=== PATIENT | female | born 1945 | race Caucasian/White ===

== ENCOUNTER 2018-07-13 09:31 | Inpatient (IN) ==
[2018-07-13 10:12] LABS: BASO# 0.01 X1000 (0.0-0.2); BASO% 0.2 % (0.0-0.8); EOS# 0.02 X1000 (0.0-0.7); EOS% 0.4 % (0.0-10.0); HEMATOCRIT 48.3 % (37.0-47.0); HEMOGLOBIN 15.2 g/dL (12.0-16.0); IMM GRAN# 0.01 X1000 (0.0-0.04); IMM GRAN% 0.2 % (0.0-0.5); LYMPH# 0.88 X1000 (1.2-3.4); LYMPH% 16.7 % (20.5-51.1); MCH 31.5 PG (27-31); MCHC 31.5 g/dL (33-37); MONO% 9.5 % (1.7-9.3); MPV 10.6 FL (7.4-10.4); NEUT# 3.86 X1000 (1.4-6.5); PLT 133 X1000 (130-400); RBC 4.83 XMIL (4.2-5.4); RDW 13.4 % (11.5-14.5); WBC 5.28 X1000 (4.8-10.8)
[2018-07-13] MEDS ORDERED: MAGNESIUM SULFATE 1 GM/D5W 1 GM/100 ML IVPB IV ONE (10:20)
[2018-07-13] MEDS ORDERED: SOLU-MEDROL IV ONE (10:20)
[2018-07-13] MEDS ORDERED: LASIX IV ONE ×2 (10:20→12:00)
--- NOTE | 2018-07-13 10:29 | PROVIDER DOCUMENTATION ---
This chart was entered by Michael Leija Scribe, acting as scribe for Kassandra Neff MD. HPI-Respiratory General - General Chief Complaint: Edema Stated Complaint: SWOLLEN FEET Time Seen by Provider: 07/13/18 10:12 Source: patient - History of Present Illness-Resp Nature of Presenting Problem: 73 yof hx of dm and htn presents with cc of Increasing BLE edema x past couple of weeks. Family reports increased sob which pt denies. Pt reports she is a smoker. No hx of afib according to EKG on arrival pt is in afib. Pt reports she doesn't need her dm medications. Denies f,cp,back pain,abd pain. No hx of dvt or pe. Quality of Pain: reports: none Severity in ED: reports: mild Review of Systems - Adult - REVIEW OF SYSTEMS - ADULT Constitutional: denies: chills, fever, fatique Eyes: reports: no symptoms reported Ears, Nose, Mouth & Throat: reports: no symptoms reported Cardiovascular: reports: edema. denies: chest pain, irregular heart rate, orthopnea, syncope Respiratory: reports: shortness of breath. denies: cough, pleurisy, wheezing Gastrointestinal: denies: abdominal pain, nausea, vomiting Genitourinary: denies: dysuria, flank pain, urgency Musculoskeletal: denies: bone pain, joint pain, joint swelling, neck pain Integumentary: reports: no symptoms reported Neurological: reports: no symptoms reported Psychiatric: reports: no symptoms reported Endocrine: reports: no symptoms reported Hematologic/Lymphatic: reports: no symptoms reported Allergic/Immunologic: reports: no symptoms reported All Other Systems: Reviewed and Negative Past History - Adult - PAST MEDICAL HISTORY-ADULT Review of Records: reports: Nursing Assessment Review, Medications Reviewed Major Childhood Illnesses: reports: denies history Cardiovascular: reports: HTN Respiratory: reports: denies history Gastrointestinal: reports: denies history Obstetrical/Gynecological: reports: denies history Genitourinary: reports: denies history Musculoskeletal: reports: denies history Neurological: reports: denies history Endocrine/Immune: reports: Diabetes Other Conditions: reports: denies history - IMMUNIZATION STATUS Childhood Immunizations: See Nurse Assessment Flu Vaccine: See Nurse Assessment - FAMILY HISTORY Family History: reviewed, not pertinent - SOCIAL HISTORY Smoking: cigarettes, less than 1 pack/day Provider spent 3-5 mins advising pt. on dangers of tobacco.: Discussed manners to quit use, and f/u contacts for add'l counseling. Substance Use: none/never Physical Exam-General - PHYSICAL EXAM-ADULT Initial Vital Signs Reviewed: Yes - CONSTITUTIONAL General Appearance: mild distress - EYES Eyes: pink conjunctivae - HEAD, EARS, NOSE, MOUTH & THROAT HENMT: moist mucous membranes - NECK Neck: full range of motion - RESPIRATORY Respiratory: chest non-tender, no pleuratic chest pain, no respiratory distress , decreased breath sounds, wheezing (mild diffuse) - CARDIOVASCULAR Cardiovascular: normal peripheral pulses, irregularly irregular, other ( bilateral lower leg edema with 3 + pitting to knees, redness of skin) - GASTROINTESTINAL (ABDOMEN) Abdominal Exam: normal bowel sounds, non tender, soft, other (obese) - LYMPHATIC Lymphatic: no adenopathy - MUSCULOSKELETAL Back Exam: normal inspection, no CVA tenderness Extremity: normal range of motion, non-tender Peripheral Pulses: radial (R): 2+, radial (L): 2+ - SKIN Integumentary: warm/dry, other (redness, 3+ pitting edema bilateral LE with mild weeping RLE) - NEUROLOGIC Neurologic: grossly normal, no motor/sensory deficits - PSYCHIATRIC Psych/Mental Status: normal mood/affect, oriented x 3, other (slightly confused sometimes when trying to follow directions, says she doesn't smoke, but she does , daughter says she has noticed that her memory and following directions is declining over past few weeks) Progress - PLAN OF CARE/RESULTS Progress/Plan/Lab Results: Vital Signs - 8 hr 07/13/18 09:37 07/13/18 11:45 Temperature 97.9 F Pulse Rate 76 84 Respiratory Rate 18 18 Blood Pressure 105/64 101/70 O2 Sat by Pulse Oximetry 92 L 97 Laboratory Results - last 24 hr 07/13/18 07/13/18 07/13/18 10:04 10:04 10:04 WBC 5.28 RBC 4.83 Hgb 15.2 Hct 48.3 H MCV 100.0 H MCH 31.5 H MCHC 31.5 L RDW Std Deviation 13.4 Plt Count 133 MPV 10.6 H Immature Gran % (Auto) 0.2 Neut % (Auto) 73.0 Lymph % (Auto) 16.7 L [place] % (Auto) 9.5 H Eos % (Auto) 0.4 Baso % (Auto) 0.2 Immature Gran # (Auto) 0.01 Neut # (Auto) 3.86 Lymph # (Auto) 0.88 L [place] # (Auto) 0.50 Eos # (Auto) 0.02 Baso # (Auto) 0.01 Specimen Type VBG pH VBG pCO2 VBG pO2 VBG HCO3 VBG O2 Saturation VBG Base Excess VBG Lactate Sodium 139 Potassium 4.4 Chloride 98 Carbon Dioxide 32 Anion Gap 9 BUN 19 Creatinine 0.8 Estimated GFR/1.73 m2 > 60 BUN/Creatinine Ratio 24 Glucose 119 H Calculated Osmolality 281 Calcium 9.1 Total Bilirubin 0.80 AST 16 ALT 25 Alkaline Phosphatase 93 Creatine Kinase 59 Troponin T [id number] Pept 71145 H Total Protein 5.8 L Albumin 3.3 L Globulin 3.0 Albumin/Globulin Ratio 1.0 Urine Source Urine Color Urine Clarity Urine pH Ur Specific [place] Urine Protein Urine Ketones Urine Blood Urine Nitrite Urine Bilirubin Urine Urobilinogen Urine Microscopic RBC Urine WBC Urine Microscopic WBC Ur Epithelial Cells Urine Bacteria Urine Glucose 07/13/18 07/13/18 07/13/18 10:04 10:45 11:00 WBC RBC Hgb Hct MCV MCH MCHC RDW Std Deviation Plt Count MPV Immature Gran % (Auto) Neut % (Auto) Lymph % (Auto) [place] % (Auto) Eos % (Auto) Baso % (Auto) Immature Gran # (Auto) Neut # (Auto) Lymph # (Auto) [place] # (Auto) Eos # (Auto) Baso # (Auto) Specimen Type VENOUS VBG pH 7.36 VBG pCO2 74 H* VBG pO2 37 VBG HCO3 33.7 H VBG O2 Saturation 72.5 VBG Base Excess 12.4 H VBG Lactate 1.20 Sodium Potassium Chloride Carbon Dioxide Anion Gap BUN Creatinine Estimated GFR/1.73 m2 BUN/Creatinine Ratio Glucose Calculated Osmolality Calcium Total Bilirubin AST ALT Alkaline Phosphatase Creatine Kinase Troponin T 0.016 Kgf-N-Phtlnpssgnz Pept Total Protein Albumin Globulin Albumin/Globulin Ratio Urine Source CATH Urine Color YELLOW Urine Clarity HAZY A Urine pH 6.5 Ur Specific [place] 1.020 Urine Protein 3+(500 mg/dL) A Urine Ketones NEGATIVE Urine Blood NEGATIVE Urine Nitrite NEGATIVE Urine Bilirubin NEGATIVE Urine Urobilinogen 4 Urine Microscopic RBC Not Reportable Urine WBC TRACE A Urine Microscopic WBC <10 Ur Epithelial Cells >10 A Urine Bacteria 1+ Urine Glucose NEGATIVE Orders Category Date Time Status Cardiac Monitoring DIRECTED Care 07/13/18 09:51 Completed Martinez Cath Insertion ORDERED Care 07/13/18 10:19 Completed Oxygen Therapy- ED Nursing DIRECTED Care 07/13/18 09:51 Active Saline Loc NOW Care 07/13/18 09:51 Active CHEST-2 VIEWS [RAD] Stat Exams 07/13/18 09:51 Completed CBC WITH ELECTRONIC DIFF [HEME] Stat Lab 07/13/18 10:04 Completed CK PROFILE [SP CHEM] Stat Lab 07/13/18 10:04 Completed COMPREHENSIVE METABOLIC PANEL [CHEM] Stat Lab 07/13/18 10:04 Completed PRO B-NATRIURETIC PEPTIDE Stat Lab 07/13/18 10:04 Completed TROPONIN T Stat Lab 07/13/18 10:04 Completed URINE CULTURE [RM] Routine Lab 07/13/18 11:57 Ordered VBG [VENOUS BLOOD GAS] [RESP] Routine Lab 07/13/18 10:45 Completed ua [URINALYSIS PL W/POSS RFLX CULT] [URINALYSIS] Stat Lab 07/13/18 11:00 Completed Furosemide [Lasix] Med 07/13/18 10:20 Discontinued 20 mg IV NOW ONE Furosemide [Lasix] Med 07/13/18 12:00 Discontinued 40 mg IV NOW ONE Magnesium Sulfate 1 gm/D5w Med 07/13/18 10:20 Discontinued 1 gm in 100 ml IV NOW Methylprednisolone Sod Succ [Solu-Medrol] Med 07/13/18 10:20 Discontinued 80 mg IV NOW ONE CP/SOB/Palp >45 yrs of Age Stat Oth 07/13/18 09:51 Ordered EKG [EKG] Stat Ther 07/13/18 09:51 Ordered d/w daughter will admit pt when work up complete, apparently new onset afib, rate wnl, O2 sats 88-91 RA, difftl not limited to CHF afib CVA fluid overload NH electrolyte d/o d/w pt and family results, rec admit, suspect COPD as part of the problem though no official diagnosis per family d/w Dr Swartz HPI exam treatment EKG chest xray PMH as given, need for admit, agreed to admit Result Diagrams: 07/13/18 10:04 07/13/18 10:04 - EKG 1 Time of EKG reading by physician:: 09:55 EKG Read and Signed by:: Kassandra Neff EKG Interpretation (*Must complete 3 of following elements*): Abnormal ( nonspecific intraventricular block, possible lateral infarct age undetermined) Rate: 101 Rhythm: afib with rvr [place]: normal Departure - Departure Date of Disposition Decision: 07/13/18 Time of Disposition Decision: 12:16 DIAGNOSIS: New onset a-fib, Bilateral edema of lower extremity, Dyspnea, Confusion Disposition: ADMITTED INPATIENT 09 Certified Medical Emergency: Emergent Condition: Good Additional Freetext Instructions: Shalini [id number] Referrals and Follow-Ups: Bharat Galdamez [Primary Care Provider] - - Critical Care Note This patient required my direct & personal management of CC.: Yes Total Time (mins): 30 Critical Care Statement: This patient required my direct personal management to treat or rule out processes, the absence of which, could potentiallly result in sudden, clinically significant life or limb threatening deterioration. Attestation - Physician/ MILTON Attestation Patient care was provided by Advanced Practice Provider:: No The physician spent face to face time with patient:: Yes Advanced Practice Provider documentation review:: Supervising physician onsite and consulted in the evaluation and care of this patient. The physician did have a face to face encounter with the patient. This chart was documented by the indicated scribe, (Michael Leija Scribe) and accurately reflects the services I performed and decisions made by me, Kassandra Neff MD, as attested by the provider's signature.
[2018-07-13 10:31] LABS: AGAP 9; ALBUMIN 3.3 g/dL (3.5-5.0); ALKALINE PHOSPHATASE 93 U/L (32-104); BUN 19 mg/dL (8-22); CALCIUM 9.1 mg/dL (8.8-10.2); CHLORIDE 98 mmol/L (98-107); CK PROFILE 59 U/L (24-173); COSMO 281; CREATININE 0.8 mg/dL (0.5-0.9); ESTIMATED GFR > 60; GLUCOSE 119 mg/dL (70-104); GOT 16 U/L (10-30); GPT 25 U/L (10-36); POTASSIUM 4.4 mmol/L (3.5-5.1); SODIUM 139 mmol/L (136-145); TCO2 32 mmol/L (25-35); TOTAL PROTEIN 5.8 g/dL (6.3-8.3)
--- NOTE | 2018-07-13 10:32 | Diag Imaging Result Doc PS360 ---
EXAM: CHEST-2 VIEWS HISTORY: sob TECHNIQUE: Chest two views COMPARISON: None. FINDINGS: Poor inspiratory effort. The heart is enlarged. There are tiny pleural effusions. There is central vascular prominence. Atelectasis is present in the left lung base. IMPRESSION: Cardiomegaly with central vascular prominence and tiny pleural effusions. Electronically signed by Demarco Mitchell 07/13/2018 10:29 AM
[2018-07-13 10:55] LABS: BE 12.4 mmoll (-2.0-2.0); BLOOD TYPE VENOUS; HCO3-(ACT) 33.7 mmoll (22-27); PO2(98.6) 37 mmHg (30-55); SAMPLE BLOOD; pH(98.6) 7.36 (7.32-7.43)
[2018-07-13 10:58] LABS: PCO2(98.6) 74 mmHg (40-60); SAO2 72.5 % (40.0-85.0)
[2018-07-13 11:56] LABS: BILIRUBIN URINE NEGATIVE (NEGATIVE); BLOOD URINE NEGATIVE (NEGATIVE); COLOR YELLOW; GLUCOSE URINE NEGATIVE (NEGATIVE); KETONE URINE NEGATIVE (NEGATIVE); LEUKOCYTES URINE TRACE (NEGATIVE); NITRITE URINE NEGATIVE (NEGATIVE); PH URINE 6.5; URINE EPITHELIAL CELLS >10 /HPF (<10); URINE WBC <10 /HPF (<10); UROBILINOGEN URINE 4 mg/dL
[2018-07-13 11:57] LABS: CLARITY HAZY (CLEAR); URINE BACTERIA 1+ /HFP; URINE SOURCE CATH
[2018-07-13] MEDS ORDERED: ZOFRAN IV PRN (13:30)
--- NOTE | 2018-07-13 13:34 | EKG Report ---
Test Performed on : 07/13/2018 09:55:57 AM Test Reason : sob Blood Pressure : / mmHG Vent. Rate : 089 BPM Atrial Rate : 100 BPM P-R Int : 000 ms QRS Dur : 150 ms QT Int : 392 ms P-R-T Axes : 000 004 242 degrees QTc Int : 476 ms Atrial fibrillation. with premature ventricular or aberrantly conducted complexes. Nonspecific intraventricular block Abnormal ECG When compared with ECG of 13-JUL-2018 09:55, (Unconfirmed) Nonspecific T wave abnormality, improved in Inferior leads Unconfirmed Result
[2018-07-13] MEDS ORDERED: LEVAQUIN 750 MG/D5W 750 MG/150 ML IVPB IV SCH (15:45)
[2018-07-13] MEDS: LOVENOX SUBQ SCH (15:56)
[2018-07-13] MEDS: TYLENOL PO PRN (16:10)
--- NOTE | 2018-07-13 16:56 | HISTORY AND PHYSICAL ---
CHIEF COMPLAINT: Bilateral lower extremity edema, shortness of breath. HISTORY OF PRESENT ILLNESS: This is a 73-year-old morbidly obese female who presents to the emergency room complaining of bilateral lower extremity edema as well as shortness of breath. The patient varies from question to question on how long symptoms have been present. Her and daughter state that she has chronic lower extremity edema, although over the last 3 to 4 weeks it is increased. She has complained off and on of shortness of breath, over the last week to 2 weeks she has had episodes of chills and generalized body aches. She has also described over the last week of waking symptoms of episodes of PND that occur 2 to 3 hours after going to bed. She states she has to get up and sit on the side of the bed to get relief. She does use home O2 and states that she has been using as directed. PAST MEDICAL HISTORY: Hypertension, diabetes mellitus on no medications at present, chronic lower extremity edema. PAST SURGICAL HISTORY: Arthroscopy, cataract removal, hysterectomy, total knee replacement, tonsillectomy and back surgery. SOCIAL HISTORY: She denies alcohol or illicit drug use. She does smoke about half a pack a day. ALLERGIES: Mcnulty pepper which "makes her deathly ill." She has no medicine allergies. HOME MEDICATIONS: A list will be obtained by the nursing staff. Once reviewed will restart as appropriate. REVIEW OF SYSTEMS: Discussed with patient with pertinent positives stated in the HPI. She denied any syncope or dizziness, any chest pain, palpitations, a productive cough, orthopnea, any nausea vomiting, diarrhea, constipation, black or bloody vomitus or stools, any hematuria, dysuria, frequency or urgency. PHYSICAL EXAMINATION: GENERAL: This is a 73-year-old morbidly obese female who is lying in the bed in no distress. VITAL SIGNS: Blood pressure is 119/86 with a heart rate of 84, respirations are 20, temperature is 97.1 degrees oral with O2 saturations 96 to 98% on 2 L nasal cannula. HEENT: Pupils are equal, round, react to light. EOMs are intact sclerae anicteric. Head is normocephalic, atraumatic. Mucous membranes are moist. NECK: Supple with trachea midline. CARDIOVASCULAR: Irregularly irregular rate and rhythm. S1 and S2 appreciated. No murmurs. She does have bilateral lower extremity edema that is noted to just above the knees down. She does have redness noted about midshin down to her toes on her right lower extremity. She does have 2 areas that are scabbed. She is also noted to have redness on her left lower extremity. Peripheral pulses are palpable x4 extremities. She does have bilateral edema noted to both arms that is slightly pitting to her elbows. PULMONARY: Breath sounds are diminished throughout. She does have some faint expiratory wheezes noted in her right upper lobe. Chest rises and falls symmetric with respiration. Chest wall is nontender to palpation . GASTROINTESTINAL: Abdomen is large, soft, nondistended, nontender with bowel sounds in all 4 quadrants. GENITOURINARY: Martinez is patent to bedside bag with pauline urine draining. NEUROLOGIC: She is alert, oriented x3. SKIN: Warm and dry. LABS: WBC is 5.2 with a hemoglobin 15.2, hematocrit 48.3 and platelets of 133,000. Sodium is 139, potassium 4.4, BUN 19, creatinine 0.8 with a glucose of 119. Her proBNP is 20,823. Urinalysis is consistent with contamination with greater than 10 epithelial cells. She does have 3+ protein. Troponin was negative. Urine culture is pending. Chest x-ray revealed cardiomegaly with central vascular prominence and tiny pleural effusions as well as atelectasis in the left lung base. ASSESSMENT AND PLAN: 1. New onset atrial fibrillation. At present her rate is controlled in the 70s to 80s with blood pressures that are around 101 to 105 systolic. We will continue to monitor. 2. Bilateral lower extremity edema. The family states that she does have chronic lower extremity edema with right greater than left. She does have some signs of venous stasis on the right mendosa, although they state that it has greatly increased. We will get a bilateral lower extremity Doppler. Will give Lasix for diuresis. They did state that she has had some weeping. We will follow this and if any purulent drainage is noted we will send a culture. 3. Dyspnea, paroxysmal nocturnal dyspnea. Will give supplemental oxygen and continue diuresis. 4. Obstructive sleep apnea. The patient uses O2 at 2 L/minute at home at night. We will continue this and monitor. 5. Hypertension. Will identify any home medications and continue as appropriate. 6. Peripheral neuropathy. Will continue her gabapentin once dose is verified. 7. Elevated proBNP this is 20,823. She has no prior diagnosis of congestive heart failure. She did have a proBNP drawn by her primary care physician which was less than 400 in the last month or so. We will continue with diuresis and follow. We will obtain an echocardiogram. 8. Left lower lobe atelectasis. The patient states that she has had chills. The stated that the chills have been present for the last week or 10 days to the point that he has had to heat up blankets in the woodworker through the night to cover her so will go ahead get blood cultures and will start Levaquin. 9. I did call and speak with Dr. Bharat Galdamez's nurse who stated that the patient has had prior EKGs, they have had none in atrial fibrillation. The prior EKGs have been sinus rhythm. They have no history of atrial fibrillation. She did see Dr. Galdamez a week ago for the shortness of breath and increased swelling. She was given Lasix 20 mg in the morning for swelling and echocardiogram was ordered for 2 weeks. 10. For deep vein thrombosis prophylaxis will use Lovenox and for gastrointestinal prophylaxis Prilosec. Further treatments pending hospital course. Dictated by DUNCAN Palmer for Nikhil Swartz MD This chart was documented by, DUNCAN Palemr and accurately reflects the services performed, treatment plan and medical decisions as attested by the providers signature Nikhil Swartz MD. cc: DUNCAN Palmer MD
[2018-07-13] MEDS: LASIX IV SCH (21:57)
--- NOTE | 2018-07-14 01:36 | HISTORY AND PHYSICAL ---
ADDENDUM: The patient was seen and examined by myself. Full note dictated and discussed with nurse practitioner. The patient presented to the hospital and was subsequently diagnosed with congestive heart failure exacerbation. She has actually been using her oxygen at home via her 's nasal cannula. She does not have O2 at home. She has a history of bilateral lower extremity edema. We will admit her to the hospital. We will follow her atrial fibrillation, rule out MO and treat symptomatically. cc: Nikhil Swartz MD
[2018-07-14] MEDS: CALMOSEPTINE OINTMENT TOP PRN (05:58)
[2018-07-14] MEDS: PRILOSEC PO SCH (06:17)
[2018-07-14] MEDS ORDERED: LEVAQUIN 750 MG/D5W 750 MG/150 ML IVPB IV SCH (06:50)
[2018-07-14 07:33] LABS: HEMOGLOBIN 14.2 g/dL (12.0-16.0); MCH 31.6 PG (27-31); MCHC 30.9 g/dL (33-37); MCV 102.2 FL (81-99); RBC 4.5 XMIL (4.2-5.4); RDW 13.3 % (11.5-14.5); WBC 4.91 X1000 (4.8-10.8)
[2018-07-14 08:05] LABS: AGAP 6; ALBUMIN 3.1 g/dL (3.5-5.0); ALKALINE PHOSPHATASE 81 U/L (32-104); BUN 18 mg/dL (8-22); CALCIUM 8.9 mg/dL (8.8-10.2); CHLORIDE 95 mmol/L (98-107); COSMO 282; CREATININE 0.7 mg/dL (0.5-0.9); ESTIMATED GFR > 60; GLUCOSE 112 mg/dL (70-104); GOT 10 U/L (10-30); GPT 21 U/L (10-36); POTASSIUM 4.3 mmol/L (3.5-5.1); SODIUM 140 mmol/L (136-145); TCO2 38 mmol/L (25-35); TOTAL PROTEIN 5.4 g/dL (6.3-8.3)
[2018-07-14] MEDS: LASIX IV SCH ×2 (10:08→21:08)
[2018-07-14] MEDS: NEURONTIN PO SCH ×3 (10:08→16:56)
[2018-07-14] MEDS: TYLENOL PO PRN (10:31)
--- NOTE | 2018-07-14 10:52 | Extremity Venous Study ---
EXAM: Venous U/S Bilateral Legs HISTORY: ZULY redsharda TECHNIQUE: Bilateral lower extremity venous Doppler ultrasound COMPARISON: None. FINDINGS: Right: There is good flow and compressibility in the veins of the right lower extremity. No thrombus. Normal augmentation. Left: There is good flow and compressibility of the veins of the left lower extremity. No thrombus. Normal augmentation. IMPRESSION: No evidence of deep venous thrombosis within either lower extremity. Electronically signed by Demarco Mitchell 07/14/2018 10:48 AM
[2018-07-14] MEDS: LOVENOX SUBQ SCH (13:24)
[2018-07-14] MEDS: LEVAQUIN PO SCH (16:57)
[2018-07-14] MEDS: NORCO-5 PO PRN (21:07)
--- NOTE | 2018-07-14 23:35 | ECHO REPORT ---
ORDER DATE: 07/14/2018 MEASUREMENTS: Left ventricular end-diastolic diameter 5.8, systolic diameter 5.2, septal thickness 1.3, posterior wall thickness 1.3, aortic root 3.3, left atrium 5.4. SUMMARY: 1. Technically difficult study due to limited apical acoustic window quality. Intravenous echo contrast agent Definity was utilized to enhance endocardial definition. 2. Aortic valve is sclerotic but opens adequately on 2-dimensional images. Peak gradient across aortic valve is less than 10 mmHg. There is mild aortic regurgitation. Mild to moderate mitral annular calcification is demonstrated. There is mild mitral regurgitation. Tricuspid and pulmonic valves are without evidence of structural abnormality with moderate tricuspid regurgitation and mild pulmonic insufficiency. Estimated systolic PA pressure by Doppler is 35 to 40 mmHg suggesting mild pulmonary hypertension. Aortic root is normal in size. 3. Mild left ventricular enlargement with mild concentric left hypertrophy is demonstrated. Estimated left ejection fraction approximately 20%. There is mild dyskinesis of the anteroseptal region and septum left ventricle. The apex appears akinetic. The remainder of the left ventricle is globally hypokinetic. There is no evidence of left ventricular thrombus. Moderate biatrial enlargement is demonstrated. Right ventricle is mildly enlarged. 4. No pericardial effusion. 5. Appearance of inferior vena cava suggests elevated central venous pressure. 6. Atrial fibrillation during study. cc: MD Divina Lucio CRNP
--- NOTE | 2018-07-14 23:58 | PROGRESS NOTE ---
DATE: 07/14/2018 SUBJECTIVE: Patient notes she is feeling little bit better less shortness of breath less coughing and congestion having swelling in lower extremities but this also was improved. PHYSICAL: Temperature 97.9, pulse 82, respiratory 20, BP 104/66.General: Patient is awake, alert, she is lying in bed she is in no current respiratory distress. HEENT: Normocephalic. Neck: Supple. CV: Regular rate. Chest: Clear. Abdomen: Soft. Extremities: Moves all extremities. She does have 2+ edema lower extremities but actually slightly improved from yesterday. ASSESSMENT: 1. Nausea, vomiting . 2. Abdominal pain. 3. New onset atrial fibrillation stable. 4. Bilateral lower extremity edema. 5. Dyspnea on exertion. 6. Obstructive sleep apnea . 7. Others. PLAN: Will continue patient in the hospital, patient ultimately will need workup for her atrial fibrillation including stress testing but currently she is stable, enzymes have been negative and we will follow. cc: Nikhil Swartz MD
[2018-07-15] MEDS: PRILOSEC PO SCH (06:27)
[2018-07-15] MEDS: ENTRESTO 24 MG-26 MG TABLET PO SCH ×2 (08:35→21:25)
[2018-07-15] MEDS: LASIX IV SCH ×2 (08:36→21:25)
[2018-07-15] MEDS: NEURONTIN PO SCH ×3 (08:36→16:58)
[2018-07-15] MEDS: LOVENOX SUBQ SCH (13:32)
[2018-07-15] MEDS: TYLENOL PO PRN (14:35)
[2018-07-15] MEDS: LEVAQUIN PO SCH (16:58)
[2018-07-15] MEDS ORDERED: ALBUTEROL NEB INH ONE (22:03)
--- NOTE | 2018-07-16 01:03 | PROGRESS NOTE ---
DATE: 07/15/2018 SUBJECTIVE: Patient notes that she is feeling better. She is having less swelling in her lower extremities. PHYSICAL EXAMINATION: Vital Signs: Temperature 97.6 degrees, pulse 69, respiratory 20, BP 99/72- 110. General: Patient is in no current distress. She is pleasant to talk with. HEENT: Normocephalic. Neck: Supple. Cardiovascular: Regular rate. Chest: Clear. No crackles. Abdomen: Soft, nondistended. Extremities: Moves all extremities. Neurologic: No changes. ASSESSMENT: 1. Severe congestive heart failure with an ejection fraction of 20% and global hypokinesis. 2. New onset atrial fibrillation. 3. Bilateral lower extremity edema. 4. Dyspnea on exertion. 5. Obstructive sleep apnea. 6. Hypertension. PLAN: We will add Entresto. Continue Lasix. Continue Levaquin. Hopefully home over the next 1 or 2 days. cc: Nikhil Swartz MD
[2018-07-16 04:11] LABS: HEMATOCRIT 46.7 % (37.0-47.0); HEMOGLOBIN 14.5 g/dL (12.0-16.0); MCH 31.5 PG (27-31); MCV 101.5 FL (81-99); MPV 10.3 FL (7.4-10.4); RBC 4.6 XMIL (4.2-5.4); RDW 13.5 % (11.5-14.5); WBC 5.16 X1000 (4.8-10.8)
[2018-07-16 04:37] LABS: AGAP 7; ALBUMIN 3.1 g/dL (3.5-5.0); ALKALINE PHOSPHATASE 78 U/L (32-104); BUN 17 mg/dL (8-22); CALCIUM 8.5 mg/dL (8.8-10.2); CHLORIDE 93 mmol/L (98-107); COSMO 279; CREATININE 0.6 mg/dL (0.5-0.9); ESTIMATED GFR > 60; GLUCOSE 128 mg/dL (70-104); GOT 13 U/L (10-30); GPT 19 U/L (10-36); POTASSIUM 3.7 mmol/L (3.5-5.1); SODIUM 138 mmol/L (136-145); TCO2 39 mmol/L (25-35); TOTAL PROTEIN 5.3 g/dL (6.3-8.3)
--- NOTE | 2018-07-16 04:55 | EKG Report ---
Test Performed on : 07/16/2018 04:00:41 AM Test Reason : RUN OF VT Blood Pressure : / mmHG Vent. Rate : 106 BPM Atrial Rate : 110 BPM P-R Int : 000 ms QRS Dur : 138 ms QT Int : 314 ms P-R-T Axes : 000 020 206 degrees QTc Int : 417 ms Atrial fibrillation. with rapid ventricular response. Nonspecific intraventricular block Possible Anterolateral infarct , age undetermined T wave abnormality, consider inferior ischemia Abnormal ECG When compared with ECG of 13-JUL-2018 09:55, (Unconfirmed) T wave inversion now evident in Inferior leads QT has shortened Confirmed by Yuan Gannon MD ([id number]) on 07/24/2018 7:20:54 AM
[2018-07-16] MEDS: PRILOSEC PO SCH (06:08)
[2018-07-16] MEDS: ENTRESTO 24 MG-26 MG TABLET PO SCH ×2 (08:09→22:24)
[2018-07-16] MEDS: LASIX IV SCH ×2 (08:10→22:24)
[2018-07-16] MEDS: NEURONTIN PO SCH ×3 (08:10→16:50)
--- NOTE | 2018-07-16 11:35 | Diag Imaging Result Doc PS360 ---
EXAM: CT THORAX W/O CONTRAST - 07/16/2018 HISTORY: dyspnea, CHF TECHNIQUE: CT thorax without contrast. No contrast administered per request of the referring provider. COMPARISON: 07/13/2018 chest radiographs FINDINGS: The heart is substantially enlarged. There are small bilateral pleural effusions. There is partial atelectasis of the bilateral lower lobes. There is no other consolidation, gross pulmonary edema, or pneumothorax identified. Included sections of upper abdomen show hepatosplenomegaly. There is a 3.9 x 2.9 cm oval low-density left adrenal lesion. IMPRESSION: Cardiomegaly. Small bilateral pleural effusions. Partial atelectasis of bilateral lower lobes. Hepatosplenomegaly. 3.9 x 2.9 cm low-density left adrenal lesion. This exam was performed using automated exposure control, adjustment of mA or kV according to patient size, and/or use of iterative reconstruction technique. Electronically signed by Art Arreola 07/16/2018 11:32 AM
[2018-07-16 11:36] LABS: BILIRUBIN URINE NEGATIVE (NEGATIVE); BLOOD URINE TRACE (NEGATIVE); CLARITY CLEAR (CLEAR); COLOR YELLOW; GLUCOSE URINE NEGATIVE (NEGATIVE); KETONE URINE NEGATIVE (NEGATIVE); LEUKOCYTES URINE NEGATIVE (NEGATIVE); NITRITE URINE NEGATIVE (NEGATIVE); PH URINE 6.5; PROTEIN URINE NEGATIVE (NEGATIVE); UROBILINOGEN URINE NORMAL
[2018-07-16 11:55] LABS: URINE BACTERIA 1+ /HFP; URINE EPITHELIAL CELLS <10 /HPF (<10); URINE RBC <10 /HPF (<10); URINE SOURCE CATH
[2018-07-16 12:02] LABS: HEMOGLOBIN A1C 6.1 % (4.8-6.0)
[2018-07-16] MEDS: LOVENOX SUBQ SCH (13:30)
[2018-07-16] MEDS: LEVAQUIN PO SCH (16:50)
[2018-07-16 17:30] LABS: BE 17.1 mmoll (-3.0-3.0); BLOOD TYPE ARTERIAL; O2(CT) 18.6 mL/dL (15.0-23.0); PO2(98.6) 53 mmHg (60-100); SAMPLE BLOOD; SAO2 90.9 % (95.0-100.0); THB 15.1 g/dL (11.5-17.4); pH(98.6) 7.35 (7.35-7.45)
[2018-07-16 17:33] LABS: ALLEN TEST YES; MODALITY CANNULA; O2HB 87.7 % (95.0-99.0); PCO2(98.6) 87 mmHg (35-45)
[2018-07-16] MEDS: DUONEB (A & A) INH SCH ×2 (18:00→23:00)
--- NOTE | 2018-07-16 21:40 | CARDIOLOGY CONSULTATION ---
DATE: 07/16/2018 REQUESTING PHYSICIANS: Hospitalist service. REASON FOR CONSULTATION: Dyspnea, congestive heart failure, ventricular tachycardia. HISTORY OF PRESENT ILLNESS: Ms. Son is an unfortunately 73-year-old female who presented to this hospital for admission on July 13 with complaints of increasing dyspnea, lower extremity edema, and generalized fatigue. Upon presentation, they did a chest x-ray that was reported as indicating cardiomegaly with central vascular prominence and tiny pleural effusions. EKG shows atrial fibrillation with evidence of an anterior myocardial infarction. Because of the swelling of her legs, they did a venous ultrasound that showed no evidence of deep venous thrombosis. Laboratory work showed normal BUN and creatinine. Pro-BNP was 20,823. Urinalysis showed 3+ protein. There 10 WBCs. The patient has been given Lasix and oxygen, and she has been monitored. The telemetry showed a 10-12 beat run of ventricular tachycardia about 3 o'clock this morning, and that really prompted this consultation. Family at bedside, daughter and grand daughter believe that she is confused. PAST MEDICAL HISTORY: The patient per history is positive for strokes in the past, according to her family. She has a history of hypertension. She has diabetes mellitus type 2 and obesity which is morbid. Her body mass index is 45+. She weighed about 135 pounds when she got the first time, and now she is 255 pounds. She has been a tobacco user. PAST SURGICAL HISTORY: 1. Bilateral total knee replacements. 2. Tonsillectomy. 3. Back surgery. 4. Hysterectomy. 5. Cataract extraction. SOCIAL HISTORY: She is a second time to her for 12 years. She has 3 grown-up children. She has been a smoker for years, about half a pack a day. FAMILY HISTORY: Noncontributory. ALLERGIES: BARRETT PEPPERS. HOME MEDICATIONS: She really has not been taking anything other than gabapentin 600 three times a day and lisinopril 20 daily. REVIEW OF SYSTEMS: The patient is very limited to ambulate at home. She has been using a walker for the past 5 years. Her weight has been obese for a long time. She has tremendous difficulty getting around because of difficulty with her hip, back, and knees, and she has developed progressive swelling of her legs. She has also been noted to be somewhat confused. She has not experienced any chest pain as such. No nausea or vomiting. No other major positives in the multiple-system review. PHYSICAL EXAMINATION: VITAL SIGNS: Blood pressure 101/55, temperature 99.9, pulse 81, respirations 18. GENERAL: She is obese, awake, alert, in no distress. HEENT/NECK: Difficult to evaluate neck veins. CHEST: Diminished breath sounds bilaterally with end expiratory wheezing. CARDIOVASCULAR: Heart sounds are irregularly irregular and distant. I cannot tell if there is a gallop or not. ABDOMEN: Massively obese. EXTREMITIES: Show 1 to 2+ below-knee edema with some redness. Pulses are diminished. NEUROLOGICAL: She follows commands and moves 4 extremities. LABORATORY DATA: Blood work on July 16 showed a hemoglobin of 14.5, white cell count of 5160. Sodium 138, potassium 3.7, BUN 17, creatinine 0.6. Serial troponins, a total of 4, are negative. The very first one was 0.016. We have requested a CT scan of the chest that was done today without contrast, and it shows cardiomegaly, bilateral pleural effusions, and extensive coronary atherosclerosis involving the LAD and the right coronary artery. There was also calcification of the mitral annulus. IMPRESSION: 1. Patient presenting with increasing dyspnea, swelling of lower extremities, abnormal chest x- ray, elevated pro-BNP, atrial fibrillation of unknown duration (presumably new onset) and echocardiogram showing LV ejection fraction of 20%. There is wall motion abnormality noted. The patient probably has congestive heart failure, functional class IV due primarily to ischemic cardiomyopathy and less likely to "uncontrolled " atrial fibrillation. The underlying etiology probably is severe obstructive coronary heart disease with very likely prior unrecognized myocardial infarction (based on appearance of 12 lead ECG). 2. The patient has clinical evidence of chronic obstructive pulmonary disease/ asthma related to her smoking. She may have a pickwickian type of component due to her morbid obesity. She may need evaluation for sleep apnea and treatment with a CPAP or BiPAP system to optimize her oxygen delivery. 3. History of hypertension. 4. History of osteoarthritis involving multiple joints. 5. Morbid Obesity. 6. Poor functional status. 7. Possible component of Metabolic Encephalopathy (question of CO2 retention) on top of history of prior CVA's. 8. Atrial fibrillation, uncertain duration. 9. Ventricular tachycardia, non sustained. likely connected with ischemic CMP. RECOMMENDATIONS: 1. At this point in time, I would suggest to continue vasodilators as you are doing, as well as gentle diuresis. I will use bronchodilators more liberally, and I would avoid beta blockers because she is actually wheezing. I will check ABG's to make sure about CO2 narcosis. Pulmonary to be consulted if abnormal. 2. We will see how she does. Her prognosis is really very poor because of her very poor mobility, morbid obesity, and very low ejection fraction. She represents a very high risk for sudden cardiac and actually in-hospital mortality. This needs to be conveyed to the family in clear terms to avoid misunderstandings. Thank you again for the opportunity to participate in the care of this patient. cc: Stewart Reilly MD MTDD
--- NOTE | 2018-07-17 00:57 | PROGRESS NOTE ---
DATE: 07/16/2018 SUBJECTIVE: Patient seen and examined this morning as well as again tonight. She is still having shortness of breath and fatigue although this morning patient was adamant about asking to go home. Interestingly, she states that the swelling in her legs has only been present for a few weeks and much more so for the last few days. PHYSICAL EXAMINATION: Vital Signs: Temperature 98.3 degrees, pulse 112, respiratory 20, BP 117/82. General: Patient is awake, alert. She is currently in no respiratory distress. HEENT: Normocephalic. Neck: Supple. Cardiovascular: Irregular rhythm. Rate controlled currently. Heart rate is in the 90s. Chest: Clear and nonlabored. No current crackles. Abdomen: Soft, obese. Extremities: Moves all extremities. Much less edema bilateral lower extremities. Skin: No rashes. ASSESSMENT: 1. Cardiac dysrhythmia. Patient went into ventricular tachycardia last night for a several beat run. 2. Severe congestive heart failure. 3. New onset atrial fibrillation. 4. Obesity. 5. Bilateral lower extremity edema. 6. Obstructive sleep apnea. 7. Hypertension. PLAN: Overall, patient has improved since admission. Her BNP has decreased from 20,000 to 12,000. Bilateral lower extremity edema was weeping on her right foot, currently is much improved. She has 1+ edema bilaterally. She does have an ejection fraction of 20% with global hypokinesis which certainly puts her at significant risk. She went into ventricular tachycardia last night. Cardiology was consulted and wished to transfer to [facility], [place] for further evaluation. cc: Nikhil Swartz MD
[2018-07-17] MEDS: DUONEB (A & A) INH SCH ×4 (04:00→21:41)
[2018-07-17] MEDS: NORCO-5 PO PRN ×2 (04:55→20:55)
[2018-07-17 05:57] LABS: AGAP 8; BUN 19 mg/dL (8-22); CALCIUM 8.4 mg/dL (8.8-10.2); CHLORIDE 90 mmol/L (98-107); COSMO 277; CREATININE 0.7 mg/dL (0.5-0.9); ESTIMATED GFR > 60; GLUCOSE 117 mg/dL (70-104); POTASSIUM 4.1 mmol/L (3.5-5.1); SODIUM 137 mmol/L (136-145); TCO2 39 mmol/L (25-35)
[2018-07-17] MEDS: PRILOSEC PO SCH (06:14)
--- NOTE | 2018-07-17 07:02 | EKG Report ---
Test Performed on : 07/17/2018 06:53:00 AM Test Reason : dyspnea, chf Blood Pressure : / mmHG Vent. Rate : 093 BPM Atrial Rate : 234 BPM P-R Int : 000 ms QRS Dur : 150 ms QT Int : 382 ms P-R-T Axes : 000 044 -34 degrees QTc Int : 474 ms Atrial fibrillation. with premature ventricular or aberrantly conducted complexes. Nonspecific intraventricular block Abnormal ECG When compared with ECG of 16-JUL-2018 04:00, (Unconfirmed) QT has lengthened Confirmed by Rosa JAIN, Christian Madrigal ([id number]) on 07/17/2018 9:22:46 AM
[2018-07-17 08:05] LABS: HEMATOCRIT 47.9 % (37.0-47.0); HEMOGLOBIN 14.7 g/dL (12.0-16.0); MCH 31.8 PG (27-31); MCHC 30.7 g/dL (33-37); MCV 103.7 FL (81-99); MPV 11.4 FL (7.4-10.4); RBC 4.62 XMIL (4.2-5.4); RDW 13.7 % (11.5-14.5); WBC 5.4 X1000 (4.8-10.8)
[2018-07-17] MEDS: NEURONTIN PO SCH ×3 (08:23→20:55)
[2018-07-17] MEDS: ENTRESTO 24 MG-26 MG TABLET PO SCH ×2 (08:24→20:56)
[2018-07-17] MEDS: LASIX IV SCH ×2 (08:24→20:55)
--- NOTE | 2018-07-17 08:53 | PROGRESS NOTE ---
DATE: 07/17/2018 SUBJECTIVE: The patient is using BiPAP at the time of my examination. She reports feeling a little bit better. She said that she is not feeling completely comfortable using this BiPAP mask. OBJECTIVE: Vital Signs: Temperature 98.9, heart rate 92, respiratory rate 22, blood pressure 102/58, O2 saturation 100% on BiPAP. General Examination: This is a chronically ill-looking and morbidly obese, 73-year-old female, lying in bed in no acute distress. HEENT: Head is normocephalic, atraumatic. Mucous membranes dry. Neck: Not possible to evaluate JVD because of neck girth. No lymphadenopathy or thyromegaly noted. Cardiovascular exam: S1, S2 heard. Irregularly irregular heart rhythm. No murmurs, gallops, or rubs. Respiratory exam: Decreased breath sounds globally with mild expiratory wheezing in both pulmonary bases. Patient is not using any accessory muscles or having work of breathing. Abdomen: Soft, nondistended, nontender to palpation. Bowel sounds present. No organomegaly. No signs of peritoneal irritation. Extremities: 2+ pedal edema in both lower extremities all the way up into both knees. Signs of chronic venous insufficiency. Peripheral pulses present, but diminished. Neurological exam: Patient is awake, oriented x3. Moves 4 extremities. LABORATORY DATA: Reviewed. The BMP is unremarkable. Hemoglobin A1c is 6.1. ProBNP and ABG from today are still pending. ASSESSMENT AND PLAN: 1. Severe congestive heart failure secondary to ischemic cardiomyopathy. The patient continues to be on Lasix 40 mg intravenous every 12 hours. In's and out's have been checked, and so far she is having good urine output. Last 24 hours she made apparently 2.8. Liters of urine. At this point, I think we will continue with the same management. Cardiology has been consulted. We will follow recommendations. We know that the echocardiogram showed an ejection fraction of 20% with wall motion abnormality noted. At this point, we will follow Cardiology recommendations. 2. Clinical chronic obstructive pulmonary disease. The patient has history of heavy smoking. Also, there is a component of pickwickian syndrome due to her morbid obesity. We are using BiPAP because her arterial blood gas from yesterday showed a CO2 of 87. At this point, we are ordering to recheck another arterial blood gas, and we will consult Dr. Cabrera from Pulmonary. 3. New onset atrial fibrillation. At this point, that condition is controlled. I am not quite sure if that was treated because of chronic hypoxemia this patient has because of all the medical conditions already mentioned. At this point, considering that the heart rate is well controlled, we will continue with the same management. 4. Bilateral lower extremity edema secondary to congestive heart failure. We will continue with Lasix. 5. Hypertension. Blood pressure is definitely under control, so we are not planning to make any changes to her current treatment. 6. Metabolic encephalopathy. I think that could be related to CO2 retention. I do not know what is the CO2 today. We have ordered an arterial blood gas, but we will continue to monitor arterial blood gas daily for at least 2 more days. 7. Nonsustained ventricular tachycardia status; one of the reasons why this patient was transferred from [facility], [place] to here. Cardiology has been consulted. We will follow recommendations. cc: Seun Lemon MD
[2018-07-17 09:00] LABS: ALLEN TEST YES; BE 16.5 mmoll (-3.0-3.0); BLOOD TYPE ARTERIAL; HCO3-(ACT) 37.7 mmoll (20.0-26.0); METHB 1.4 % (0.0-1.5); O2(CT) 20.6 mL/dL (15.0-23.0); O2HB 95.8 % (95.0-99.0); PO2(98.6) 149 mmHg (60-100); SAMPLE BLOOD; THB 15.1 g/dL (11.5-17.4); pH(98.6) 7.34 (7.35-7.45)
[2018-07-17 09:01] LABS: MODALITY BI PAP; PCO2(98.6) 88 mmHg (35-45)
--- NOTE | 2018-07-17 11:20 | CARDIOLOGY PROGRESS NOTE ---
DATE: 07/17/2018 CHIEF COMPLAINT: Shortness of breath and swelling. SUBJECTIVE: Ms. Son was transferred from [facility] to this one for management of her high CO2 level. We really need to have a pulmonary consult done on the case. The patient is feeling somewhat better today. She is mentating better. She has no pain. OBJECTIVE: Vital Signs: Blood pressure is 102/58, temperature 98.9, pulse 92, and respirations 22. General: She is awake, obese, and in no distress. BiPAP mask is on. Chest: Diminished breath sounds with slight end expiratory wheezes. Cardiac: Heart sounds are very distant and irregular. Telemetry shows the presence of atrial fibrillation without any significant ventricular arrhythmia. Yesterday they documented one run of ventricular tachycardia. In the past 12 hours she has had occasional PVCs. Abdomen: The abdomen is obese. Extremities: The extremities show trace ankle edema. Neurological: Follows commands and moves all extremities. LABORATORY DATA: Blood work: Hemoglobin is 14.7, hematocrit 47.9, and white cell count 5,400. Sodium is 137, potassium 4.1, BUN 19, and creatinine 0.7. IMPRESSION: 1. Patient with respiratory failure, hypercarbic, secondary to a combination of morbid obesity, chronic obstructive pulmonary disease, and left ventricular heart failure. 2. Congestive heart failure, probably acute on chronic, class 3 to 4, underlying etiology is likely to be coronary heart disease given the extensive coronary artery calcification noted on CT scan of the chest. 3. The patient is morbidly obese, Pickwickian. 4. History of diabetes mellitus. 5. History of hypertension. 6. Persistent atrial fibrillation and unsustained or nonsustained ventricular tachycardia. RECOMMENDATIONS: We will try to optimize the medical management of this patient with medications. Her prognosis is really quite guarded. We will see what Pulmonary has to add. At this point in time low dose vasodilators may be the best intervention and probably some digoxin to give her some inotropic support. Prognosis is really not good and I did discuss with the patient's family about the significant increased risk for sudden during this admission. cc: Stewart Reilly MD
[2018-07-17] MEDS: LANOXIN PO SCH (11:59)
[2018-07-17 12:19] LABS: UR CREATININE 84.4 mg/dL (11-20)
[2018-07-17 12:56] LABS: CREATININE 0.7 mg/dL (0.7-1.2)
[2018-07-17 13:08] LABS: URINE GLUCOSE TOTAL 0.1 mg/24 (0.0-0.5)
[2018-07-17] MEDS: LOVENOX SUBQ SCH (14:24)
[2018-07-17] MEDS: LEVAQUIN PO SCH (16:09)
[2018-07-17] MEDS ORDERED: MIRALAX PO ONE (20:41)
[2018-07-17] MEDS: CALMOSEPTINE OINTMENT TOP PRN (20:54)
[2018-07-17] MEDS ORDERED: ATIVAN PO ONE (23:14)
[2018-07-17] MEDS ORDERED: ATIVAN IV ONE (23:33)
[2018-07-18] MEDS: DUONEB (A & A) INH SCH ×4 (03:38→22:00)
--- NOTE | 2018-07-18 03:51 | PULMONOLOGY CONSULTATION ---
DATE: 07/17/2018 REQUESTING PHYSICIAN: Dr. Hughes. REASON FOR CONSULTATION: Respiratory failure. HISTORY OF PRESENT ILLNESS: Ms. Son is a 73-year-old white female with a greater than 25-pack- year history for tobacco, who was smoking at the time of admission, morbid obesity, with a BMI greater than 45, who presented to the emergency room because of increased lower extremity edema. Initial chest x-ray revealed mild vascular congestion, with significant cardiomegaly. Initial echocardiogram reveals severe reduction in ejection fraction of 20%, with mild elevation in the pulmonary artery pressures. The patient was in atrial fibrillation for unknown duration. EKG was consistent with prior myocardial infarction. Initial arterial blood gas revealed a pH of 7.36, pCO2 of 74, and a PO2 of 37. CT scan of the thorax was performed, which revealed a huge heart lying against the left chest wall for a significant portion of the chest, enlarged pulmonary arteries, evidence of coronary artery disease, with small pleural effusions. The patient has been initiated on BiPAP, and has had significant diuresis. Her hospital course has been complicated by nonsustained ventricular tachycardia. PAST MEDICAL HISTORY/PROBLEM LIST: 1. Hypertension. 2. Possible diabetes mellitus, although her hemoglobin A1c is not significantly elevated. 3. Ongoing tobacco use. 4. Bilateral total knee arthroplasties. 5. History of back surgery. 6. Status post hysterectomy. 7. Probable myocardial infarction, as per above. 8. Morbid obesity. SOCIAL HISTORY: No alcohol use listed. Ongoing tobacco use, as per above. FAMILY HISTORY: Notable for deep vein thrombosis, diabetes, anxiety, and depressive disorders, but otherwise negative. REVIEW OF SYSTEMS: Notable for shortness of breath, increasing lower extremity edema, some confusion noted by the family, decreasing performance status at home, with more difficulty ambulating. PHYSICAL EXAMINATION: General: Reveals a morbidly obese white female on BiPAP. She appears to be comfortable. Blood pressure 110/59, heart rate 79, respiratory rate 18, oxygen saturation 97% on BiPAP. HEENT: Pupils are equal and reactive. Oropharynx is clear. Neck: Supple. Chest: Reveals a prolonged expiratory phase, without significant wheezing. Cardiac: Irregularly irregular. PMI can be felt on the lateral chest wall. Abdomen: Obese and soft. Extremities: Reveals evidence of recent diuresis. IMPRESSION: A 73-year-old with: 1. Morbid obesity, and a BMI greater than 45. 2. Chronic hypercapnic respiratory failure. 3. Acute hypoxemic respiratory failure. 4. Cor pulmonale, although echocardiogram suggested PA pressures were 35 to 40. The pulmonary artery is significantly elevated on the CT scan. I suspect that the echocardiogram is not adequately measuring her PA pressures. 5. Ischemic cardiomyopathy. 6. Atrial fibrillation. 7. Nonsustained ventricular tachycardia. 8. Massive cardiomegaly on CT scan, which likely is giving the patient a restrictive component to her probable obstructive lung disease. The patient appears to have had some clinical improvement with diuresis. RECOMMENDATIONS: 1. Smoking cessation was discussed with the patient and family. It is paramount that she stop smoking. 2. Continue to cycle BiPAP at bedtime and p.r.n., and diurese as tolerated. 3. Recommend outpatient sleep evaluation. It is suspected that she has a component of sleep apnea. 4. Rate control for atrial fibrillation as you are doing. 5. Possible cardiac workup to be determined with clinical improvement. 6. With her age, cardiomyopathy, hypoxemic and hypercapnic respiratory failure, pulmonary hypertension, nonsustained ventricular tachycardia, her overall prognosis is [id number], as outlined by Dr. Reilly. cc: Lex Cabrera MD
[2018-07-18 05:40] LABS: HEMATOCRIT 43.5 % (37.0-47.0); HEMOGLOBIN 13.1 g/dL (12.0-16.0); MCH 31.3 PG (27-31); MCHC 30.1 g/dL (33-37); MCV 104.1 FL (81-99); MPV 10.9 FL (7.4-10.4); RBC 4.18 XMIL (4.2-5.4); RDW 13.7 % (11.5-14.5); WBC 6.2 X1000 (4.8-10.8)
[2018-07-18 05:58] LABS: CALCIUM 8.5 mg/dL (8.8-10.2); CREATININE 1.2 mg/dL (0.5-0.9); POTASSIUM 4.2 mmol/L (3.5-5.1)
[2018-07-18 06:02] LABS: ALLEN TEST YES; BE 16.8 mmoll (-3.0-3.0); BLOOD TYPE ARTERIAL; PO2(98.6) 104 mmHg (60-100); SAMPLE BLOOD; SRATE 12 BPM; pH(98.6) 7.35 (7.35-7.45)
[2018-07-18 06:03] LABS: MODALITY BI PAP
[2018-07-18 06:04] LABS: PCO2(98.6) 85 mmHg (35-45)
[2018-07-18] MEDS: PRILOSEC PO SCH (06:28)
[2018-07-18] MEDS ORDERED: MIRALAX PO SCH (09:00)
[2018-07-18] MEDS: ENTRESTO 24 MG-26 MG TABLET PO SCH ×2 (09:13→20:53)
[2018-07-18] MEDS: NEURONTIN PO SCH ×3 (09:13→17:41)
[2018-07-18] MEDS: LANOXIN PO SCH (09:13)
[2018-07-18] MEDS: NORCO-5 PO PRN ×4 (10:46→23:51)
--- NOTE | 2018-07-18 13:24 | PROGRESS NOTE ---
DATE: 07/18/2018 SUBJECTIVE: Patient is lying comfortably in bed. She is using the BiPAP machine at the time of my physical exam. As per the patient, she is feeling a little bit better compared with yesterday. She denies chest pain, abdominal pain. She is complaining of shortness of breath. She has been on Lasix, which I will hold because of the increase of BUN and creatinine and decreased urine output. Cardiology Department and Pulmonary Department following this patient. OBJECTIVE: Vital Signs: Temperature 98.5, pulse 95, respiratory rate 18, blood pressure 97/65, oxygen saturation 97% on the BiPAP machine. HEENT: Head normocephalic. No trauma, PERRLA. Neck: Supple. I cannot see JVD because of her neck size. Central trachea. Chest: Decreased breath sounds globally. Coarse breath sounds. Prolonged expiratory phase. I do not hear any wheezing. Cardiovascular: Irregular rhythm. Extremities: 2+ to 3+ lower extremity edema. No clubbing. No cyanosis. Neurological: The patient is alert and oriented x3. No focal deficits. LABORATORY: WBC 6.2, hemoglobin 13.1, hematocrit 43.5, platelets 88. Sodium 133, potassium 4.2, chloride 86, bicarbonate 39, BUN 27, creatinine 1.2, glucose 99, calcium 8.5. ASSESSMENT AND PLAN: 1. Severe systolic heart failure exacerbation. I will hold the Lasix for now due to her acute kidney injury. Cardiology department and Pulmonary department following this patient. As per the patient, she is feeling better now, but she is still complaining of some shortness of breath. It looks like the urine output decreased compared with the previous days. Echocardiogram showed an ejection fraction of 20% with wall motion abnormalities. 2. Clinical chronic obstructive pulmonary disease. Continue with the BiPAP machine. It looks like this patient was a smoker. Likely also this patient has Pickwickian syndrome due to her obesity. Continue with the same management. PCO2 is still elevated. 3. New onset atrial fibrillation. Rate controlled. We will wait for Cardiology recommendations. Stable. 4. Bilateral lower extremity edema secondary to congestive heart failure. We have been reducing Lasix, but at this moment, I will stop it because of the acute kidney injury. Probably we will put her back on that medication in the afternoon or tomorrow. Cardiology on board. I will follow recommendations. 5. Hypertension. Blood pressure controlled. 6. Metabolic encephalopathy, likely due to CO2 retention, but she is following commands and she is responding to all my questions. 7. Nonsustained ventricular tachycardia. We will continue to monitor. Continue with the same management. 8. Resuscitation status. I had a conversation with this patient about her condition, but she still wants to be full code. cc: Kenton Paniagua MD
--- NOTE | 2018-07-18 13:46 | Diag Imaging Result Doc PS360 ---
CHEST-PORTABLE - 07/18/2018 INDICATION: heart failure COMPARISON: 07/13/2018 FINDINGS: Stable cardiomegaly and severe pulmonary vascular congestion. There is slight worsening right perihilar infiltrate or atelectasis. No pneumothorax or significant pleural effusion. IMPRESSION: Slight worsening right perihilar infiltrate or atelectasis. Electronically signed by Steven Sahu 07/18/2018 1:43 PM
[2018-07-18] MEDS: LOVENOX SUBQ SCH (13:56)
[2018-07-18] MEDS: LEVAQUIN PO SCH (17:41)
[2018-07-19] MEDS: DUONEB (A & A) INH SCH ×5 (03:44→21:41)
[2018-07-19] MEDS: NORCO-5 PO PRN (04:12)
--- NOTE | 2018-07-19 04:32 | PULMONOLOGY PROGRESS NOTE ---
DATE: 07/18/2018 SUBJECTIVE: The patient was off BiPAP for lunch. She did well for approximately 45 minutes, and then developed increased shortness of breath with chest pain. OBJECTIVE: Vital Signs: The patient has had no significant diuresis over the last 24 hours. Blood pressure 122/96, heart rate 79, respiratory rate 18, oxygen saturation 98%. HEENT: Pupils are equal and reactive. Oropharynx is clear. Neck: Supple. Chest: Reveals prolonged expiratory phase. Cardiac: Distant S1, distant S2. Abdomen: Obese and soft. Extremities: Without edema. LABORATORIES: Arterial blood gas reveals a pH 7.35, pCO2 of 85, PO2 of 104, on BiPAP. Chest x- ray reveals cardiomegaly, with mild vascular congestion. No significant change from prior film. IMPRESSION: 1. A 73-year-old with acute hypoxemic respiratory failure. 2. Chronic hypercapnic respiratory failure. 3. Cor pulmonale. 4. Morbid obesity, with a BMI greater than 45. 5. Ischemic cardiomyopathy. 6. Atrial fibrillation. 7. Nonsustained ventricular tachycardia. There has been little roll changer the last 24 hours. RECOMMENDATIONS: 1. The patient was smoking at the time of admission. It is strongly encouraged that she discontinue all tobacco products. 2. Continue to cycle BiPAP for hypoxemic and hypercapnic respiratory failure. 3. Recommend outpatient sleep evaluation. I suspect nocturnal hypoxemia is contributing to her LV dysfunction, and to her pulmonary hypertension. 4. Continue rate control for her atrial fibrillation. 5. Cardiac workup, as outlined per Cardiology. 6. Overall prognosis is poor. Dr. Woodard has initiated end of life discussions with the family, and patient at this time wants to be a full code, with a full resuscitation. cc: Lex Cabrera MD
--- NOTE | 2018-07-19 04:47 | PROGRESS NOTE ---
DATE: 07/18/2018 SUBJECTIVE: I was asked to see Ms. Son's neck swelling since the primary physician was not available at the moment, and I was in the hospital. I evaluated the patient at bedside. She denies any chest pain. She denies worsening shortness of breath. Family members at bedside deny noticing any swelling in the neck before. According to the report given to me by the nursing team, they had noticed swelling in both of her necks, which had started in the afternoon time. It was not there before. VITAL SIGNS: Currently, patient's vitals suggest her temperature is 98.7 degrees, pulse 91 per minute, blood pressure 108/90, saturating 97% on BiPAP, with PEEP of 8. PHYSICAL EXAMINATION: She has good air entry bilaterally, without any rhonchi or crackles, and only mild wheezes. On neck examination, I could see bilateral neck swelling, about 5 to 6 cm in diameter, round in shape, with smooth contour. Overlying skin did not have any erythema, edema, warmth, or tenderness. The swellings are fluctuant. They appear to be located subcutaneous. IMPRESSION: In my impression, these could be present from before, it was just that they came under notice recently. I discussed her hemodynamic stability with the primary care hospitalist, and accordingly decided not to pursue any imaging. cc: Diaz Joyce MD
[2018-07-19 05:11] LABS: ALLEN TEST YES; BE 17.5 mmoll (-3.0-3.0); BLOOD TYPE ARTERIAL; HCO3-(ACT) 38.5 mmoll (20.0-26.0); O2(CT) 17.9 mL/dL (15.0-23.0); PO2(98.6) 76 mmHg (60-100); SAMPLE BLOOD; SAO2 98.8 % (95.0-100.0); THB 13.4 g/dL (11.5-17.4); pH(98.6) 7.31 (7.35-7.45)
[2018-07-19 05:13] LABS: MODALITY BI PAP
[2018-07-19 05:14] LABS: PCO2(98.6) 97 mmHg (35-45)
[2018-07-19 06:00] LABS: HEMATOCRIT 43.9 % (37.0-47.0); HEMOGLOBIN 13.4 g/dL (12.0-16.0); MCH 31.5 PG (27-31); MCHC 30.5 g/dL (33-37); MCV 103.3 FL (81-99); MPV 10.4 FL (7.4-10.4); RBC 4.25 XMIL (4.2-5.4); RDW 13.5 % (11.5-14.5); WBC 5.35 X1000 (4.8-10.8)
[2018-07-19] MEDS: PRILOSEC PO SCH (06:00)
[2018-07-19 06:22] LABS: CALCIUM 8.2 mg/dL (8.8-10.2); POTASSIUM 4.6 mmol/L (3.5-5.1)
--- NOTE | 2018-07-19 07:55 | Diag Imaging Result Doc PS360 ---
CHEST-PORTABLE - 07/19/2018 INDICATION: dyspnea COMPARISON: 07/18/2018 FINDINGS: Stable cardiomegaly and pulmonary vascular congestion. There has been improvement in the hazy right perihilar and basilar infiltrate/atelectasis. No definite infiltrates or edema. No pneumothorax or large pleural effusion. IMPRESSION: Improvement in the right perihilar infiltrate/atelectasis. Electronically signed by Steven Sahu 07/19/2018 7:52 AM
[2018-07-19] MEDS ORDERED: LASIX IV SCH (09:00)
[2018-07-19] MEDS: MORPHINE IV PRN ×4 (10:39→23:33)
--- NOTE | 2018-07-19 10:59 | PROGRESS NOTE ---
DATE: 07/19/2018 SUBJECTIVE: This patient is lying comfortably in bed. She is not complaining of chest pain. She is confused. She is able to recognize family members at the bedside but her answers were slow. She is not oriented to time. She is not oriented to place. Her answers do not makes sense. I had a large conversation with the daughter who is at the bedside and she told me that this is not what her mother wants. She does not want to be full code. She wants to be DNR. Then we talked about further treatment and at the end we have decided to put this patient on comfort measures only. Her pCO2 is getting worse even though she is on the BiPAP machine. The daughter and grandson agree to stop the treatment and put her on comfort measures only. They do not want to use the BiPAP machine; they prefer to go ahead and use the nasal cannula. Yesterday, I had a conversation with the patient and she stated that she wanted to be full code but she has been confused. So I will go ahead and I will stop the treatment. I will use medication to keep her comfortable. OBJECTIVE: Vital Signs: Temperature 97.8 degrees, pulse 100, respiratory rate 20, blood pressure 114/52, oxygen saturation 97% on the BiPAP machine. HEENT: Head normocephalic. No trauma. PERRLA. Neck: Supple. I cannot see JVD because of her neck size. Central trachea. Chest: Decreased breath sounds globally with coarse breath sounds. Prolonged expiratory phase. I do not hear any wheezing. Cardiovascular: Irregular rhythm. Extremities: One to 2+ lower extremity edema. No clubbing. No cyanosis. Neurological: The patient is alert. She is oriented to person. She is able to recognize family members at the bedside. Her answers are slow. She is not oriented to time or place and when she talks she does not make sense most of the time. I do not see any focal motor deficit. LABORATORY: WBC 5.3, hemoglobin 13.4, hematocrit 43.9, platelets 76,000. PCO2 97. Sodium 135, potassium 4.6, chloride 88, bicarbonate 39, BUN 37, creatinine 1, glucose 112, calcium 8.2. ASSESSMENT: 1. Severe systolic heart failure exacerbation. 2. Clinical chronic obstructive pulmonary disease. 3. New onset atrial fibrillation. 4. Bilateral lower extremity edema secondary to congestive heart failure. 5. Hypertension. 6. Metabolic encephalopathy, likely due to CO2 retention. 7. Respiratory failure, hypercapnic and hypoxemic. 8. Nonsustained ventricular tachycardia. 9. This patient is do not resuscitate level 1. PLAN: I had a large conversation with the family and they agreed to put this patient on comfort measures only. They do not want to use the BiPAP machine; they want to use a nasal cannula. This patient is confused today and is only oriented to person, but she is able to recognize family members at the bedside. She is not complaining of chest pain or any pain. I had a conversation with the daughter who is at the bedside. Also the charge nurse, Kiersten Irving, was present during the whole conversation. We will stop the treatment and put her on medication to keep her comfortable. cc: Kenton Paniagua MD
[2018-07-19] MEDS: ATIVAN IV PRN ×3 (12:26→15:18)
--- NOTE | 2018-07-19 21:12 | PULMONOLOGY PROGRESS NOTE ---
DATE: 07/19/2018 INTERIM HISTORY: The patient's pCO2 has increased. She has become progressively confused. Dr. Woodard spoke with the family about her prognosis and they have elected to pursue comfort measures and stop BiPAP device. She is being prepared for transfer to the floor for comfort measures. OBJECTIVE: Vital Signs: The patient has been afebrile for the last 24 hours. Blood pressure 114/52, heart rate 100, respiratory rate 19, oxygen saturation 95% on BiPAP. HEENT: Pupils are equal and reactive. Oropharynx is clear. Neck: Supple. Chest: Reveals diffuse crackles bilaterally. Cardiac: Regular rate. Normal S1, normal S2 with a PMI slightly displaced to the left. Abdomen: Soft. Extremities: Reveal 2+ peripheral edema. LABORATORIES: Arterial blood gas this morning on BiPAP: PH 7.31, pCO2 of 97, PO2 of 76. Sodium 135, potassium 4.6, chloride 88, bicarbonate 39, BUN 37, creatinine 1 0. White blood count 5.35, hemoglobin 13.4, platelet count 76,000 and dropping. IMPRESSION: 1. A 73-year-old with acute hypoxemic respiratory failure. 2. Chronic hypercapnic respiratory failure. 3. Cor pulmonale. 4. Morbid obesity. 5. Nonsustained ventricular tachycardia. 6. Ischemic cardiomyopathy. 7. Atrial fibrillation. 8. Delirium. 9. Patient's prognosis is extremely poor. A family discussion/end of life discussion has been held with the family. She is now a Do Not Resuscitate, level 1. Her BiPAP will be discontinued and she will be transferred to the floor. RECOMMENDATIONS: 1. Agree with end of life discussions and plan as outlined above. 2. Anticipate transfer to the floor. 3. Overall prognosis is poor. Hopefully, she will survive to discharge to Hospice. cc: Lex Cabrera MD
[2018-07-20] MEDS: DUONEB (A & A) INH SCH ×4 (03:08→21:25)
[2018-07-20] MEDS: ATIVAN IV PRN ×4 (06:11→22:12)
--- NOTE | 2018-07-20 08:09 | EKG Report ---
Test Performed on : 07/18/2018 06:02:14 AM Test Reason : dyspnea, chf Blood Pressure : / mmHG Vent. Rate : 087 BPM Atrial Rate : 104 BPM P-R Int : 000 ms QRS Dur : 136 ms QT Int : 378 ms P-R-T Axes : 000 029 062 degrees QTc Int : 454 ms Atrial fibrillation. with premature ventricular or aberrantly conducted complexes. Nonspecific intraventricular block Cannot rule out Anterior infarct , age undetermined Abnormal ECG When compared with ECG of 17-JUL-2018 06:53, No significant change was found Confirmed by Rosa JAIN, Christian Madrigal ([id number]) on 07/20/2018 8:52:23 AM
[2018-07-20] MEDS: MORPHINE IV PRN ×3 (08:38→21:19)
--- NOTE | 2018-07-20 10:16 | PROGRESS NOTE ---
DATE: 07/20/2018 SUBJECTIVE: This patient is lying comfortably in bed. She is lethargic. I do not think she is complaining of any kind of pain at this moment. We will continue with the same management. Comfort measures only. at the bedside. OBJECTIVE: Vitals Signs: Temperature 98.1 degrees, pulse 96, respiratory rate 15, blood pressure 140/108, oxygen saturation 94% on a nonrebreathing mask, 15% oxygen flow. HEENT: Head normocephalic. No trauma. PERRLA. Neck: Supple. Central trachea. Chest: Decreased breath sounds globally with coarse breath sounds. Prolonged expiratory phase. Shallow breathing. Cardiovascular: Irregular rhythm. Extremities: There is 2+ to 3+ lower extremity edema. No clubbing. No cyanosis. Neurological: This patient is lethargic. She responded a little bit with mild stimulation. ASSESSMENT AND PLAN: 1. Severe systolic heart failure exacerbation. 2. Chronic obstructive pulmonary disease. 3. New onset atrial fibrillation. 4. Bilateral lower extremity edema secondary to congestive heart failure. 5. Hypertension. 6. Metabolic encephalopathy likely due to carbon dioxide retention. 7. Respiratory failure, hypercapnic and hypoxemic. 8. Nonsustained ventricular tachycardia. 9. Do not resuscitate level 1. We will continue with the same management. This patient is on comfort measures only. We will continue to monitor. cc: Kenton Paniagua MD
[2018-07-21] MEDS: DUONEB (A & A) INH SCH ×3 (03:55→15:31)
[2018-07-21] MEDS: MORPHINE IV PRN ×5 (06:24→20:23)
[2018-07-21] MEDS: ATIVAN IV PRN ×2 (08:19→14:23)
--- NOTE | 2018-07-21 12:42 | PROGRESS NOTE ---
DATE: 07/21/2018 SUBJECTIVE: As per family who is at bedside, patient is moaning in a little bit of pain. Apparently, the morphine weans off after 1 hour of administration. No others issues mentioned by the family. OBJECTIVE: Vital Signs: Temperature 97.6, heart rate 60, respiratory rate 18, blood pressure 95/60. O2 saturation 88% on non-rebreather at 15 L/minute. General: This is a chronically ill- looking, 73-year-old female lying in bed in moderate respiratory distress. Cardiovascular: S1, S2 heard. Tachycardic. No murmurs, gallops, or rubs noted. Respiratory: Coarse breath sounds all over both pulmonary bases. Patient is not using any accessory muscles or having work of breathing. Abdomen is soft. Nontender to palpation. Bowel sounds present. No organomegaly. Neurologic: The patient is lethargic and does not respond to verbal stimuli. ASSESSMENT AND PLAN: 1. Severe systolic congestive heart failure exacerbation. 2. Chronic obstructive pulmonary disease exacerbation. 3. New onset atrial fibrillation. 4. Bilateral lower extremity edema secondary to congestive heart failure. 5. Hypertension. 6. Metabolic encephalopathy. 7. Acute respiratory failure, hypercapnic and hypoxemic. 8. DNR LEVEL 1. At this point, we will increase the doses of morphine to 1 mg q. hour and will continue to monitor this patient closely. Family has been updated about the clinical situation of the patient and recommended if this patient needs anything, feel free to call us at any time. cc: Seun Lemon MD
[2018-07-21 20:21] VITALS: BP 88/53
--- NOTE | 2018-07-24 17:01 | DISCHARGE SUMMARY ---
ADMISSION DATE: 07/13/2018 DISCHARGE DATE: 07/21/2018 DATE OF DISCHARGE/DATE OF : 07/21/2018 DIAGNOSES/REASON FOR : The patient unfortunately from the following diagnoses: 1. New onset atrial fibrillation. 2. Bilateral lower extremity edema. 3. Acute congestive heart failure. 4. Obstructive sleep apnea. 5. Obesity hypoventilation syndrome. 6. Left lower lobe pneumonia. CONSULTATIONS: 1. Dr. Stewart Reilly from cardiology. 2. Dr. Lex Cabrera from pulmonary. PROCEDURES: 1. Chest x-ray done on admission showed cardiomegaly with central vascular prominence and tiny pleural effusion. 2. Extremity venous study did not show any evidence of deep vein thrombosis in any lower extremity. 3. Chest CT showed cardiomegaly with small bilateral pleural effusion and partial atelectasis of bilateral lower lobes. 4. Chest x-ray done the day before, on 07/19/2018, showed improvement in the right perihilar infiltrate atelectasis. HOSPITAL COURSE: Patient basically was admitted to the hospital for shortness of breath. We found out that she has severe systolic congestive heart failure exacerbation. We were trying high amount of diuretics, but she was not responding. Also, for her COPD we were trying DuoNeb every 4 hours scheduled, but unfortunately, patient was not improving. On top of that, we found out that this patient developed atrial fibrillation with rapid ventricular response, and that was treated accordingly. We have consulted Cardiology and Pulmonary for her case. Unfortunately, she was not improving even though she was placed on Lasix. The echocardiogram showed an ejection fraction of 20% with wall motion abnormality, so because the patient was not improving, we have talked with the family to see what we can do for this patient, and they decided to do comfort care measures only with this patient. We provided pain medication and anxiety medications for her pain, and unfortunately, patient on 07/21/2018 at 2035 hours. cc: Seun Lemon MD
== END 2018-07-21 20:35 | disposition expired | DRG 291 ==
LOC: P.ED 09:31 → P.MEDSURG 14:14 → SUATTDRO 14:14 → 3S 07-16 21:52 → 3N 07-19 10:09
PROVIDERS: ATTEND Internal Medicine
CPT/HCPCS: 51702; 71010; 71020; 71045; 71046; 71250; 80048; 80053; 81001; 81050; 82550; 82575; 82805; 82945; 83036; 83735; 83880; 84156; 84484; 85025; 85027; 85651; 86140; 87040; 87070; 87077; 87088; 87186; 93005; 93010; 93306; 93308; 93970; 94640; 94660; 94761; 94762; 94799; 96374; 96375; 96376; 99285; A9270; C8929; J1650; J1940; J1956; J2060; J2270; J2405; J2930; J3475; Q9957